=== PATIENT | male | born 1960 | race Caucasian/White ===

== ENCOUNTER 2020-04-16 00:06 | Outpatient (CLI) | payer BC, SELFPAY ==
[2020-04-16 19:24] LABS: SARS-CoV-2 RNA PCR Negative
== END 2020-04-16 00:07 | disposition home or self-care (01) ==
LOC: ANHCOVIDDT 00:07
PROVIDERS: PCP Family Medicine; Visit Provider Internal Medicine Gastroenterology
DX: Z01.812 Encounter for preprocedural laboratory examination (principal); Z20.828 Contact with and (suspected) exposure to other viral communicable diseases
CPT/HCPCS: 87635; C9803; U0003

== ENCOUNTER 2020-04-19 00:48 | Day surgery (SDC) | payer BC, SELFPAY ==
[2020-04-14 10:25] VITALS: BMI 22.8
[2020-04-19 07:55] VITALS: BP 122/79; PULSE 74; RESP 16; TEMP 36.8; O2SAT 97; BMI 22.4
--- NOTE | 2020-04-19 08:07 | WPDGICN ---
Assessment and Plan Assessment and plan (1) History of colon polyps: Code(s): Z86.010 - Personal history of colonic polyps Status: Acute Assessment and Plan: Patient has a history of colon polyps plan is for surveillance colonoscopy now and at intervals in the future. GI Consult Note Consult date/time: 04/19/20 08:07 HPI: Néstor Frost is a 59 year old male Seen in his evaluation for screening colonoscopy. Patient's past medical history is significant for colon polyps. He presents today for surveillance examination. His current weight appetite bowel movements are normal. His last colonoscopy was 2012. Family history is noncontributory. Patient reports no blood in his stools. He states his bowel habits are normal. Review of Systems Review of Systems: All systems reviewed & are unremarkable except as noted in HPI and below PMFSH Social History Social History Smoking packs per day: 0.5 Smoking cigarettes per day: 10.0 Years smoked: 30 Smoking pack-years: 15.00 Alcohol intake: current Drinks per week: 2 Substance use: never Substance use type: does not use Living arrangements: with family Spiritual care concerns: No Meds Home Medications and Allergies Home Medications Medication Instructions Recorded Confirmed Type vl-xh-OO-vit I-ooevd-oky-coQ10 1 cap PO DAILY 04/14/20 04/14/20 History [Daily Multivitamin] omega-3 fatty acids [Fish Oil] 1,000 mg PO DAILY 04/14/20 04/14/20 History Allergies Allergy/AdvReac Type Severity Reaction Status Date / Time codeine Allergy Mild Hives Verified 04/19/20 07:54 Vital Signs Vital Signs - 24 hr 04/19/20 07:55 Temperature 98.3 F Pulse Rate 74 Respiratory Rate 16 Blood Pressure 122/79 Pulse Oximetry 97 Exam Narrative: Exam Narrative: Physical exam reveals patient to be alert. Vital signs stable. HEENT exam unremarkable. Lungs are clear to auscultation and percussion. Heart is without murmur or extra sounds. Abdominal exam bowel sounds are present soft nontender with no organomegaly. Digital external rectal exam is normal.
[2020-04-19] MEDS: LACTATED RINGERS 1,000 ML 150 ML IV CONT (08:10)
--- NOTE | 2020-04-19 08:40 | WPDANESEPPF ---
Anes - Initial Pre Proc Eval Procedure: Operation Date: 04/19/20 09:00 Proposed Procedures p Screening Colonoscopy - Oswald Marcial MD Date/Time: 04/19/20 08:40 Surgeon: Oswald Marcial MD Pre Op Diagnosis: Neoplasm Screening/ Hx Colon Polyps Patient Data Age: 59 Gender: M Height: 5 ft 8 in Weight: 67.1 kg Last Vital Signs Temp 98.3 F 04/19/20 07:55 Pulse 74 04/19/20 07:55 Resp 16 04/19/20 07:55 BP 122/79 04/19/20 07:55 Pulse Ox 97 04/19/20 07:55 Allergies Allergy/AdvReac Type Severity Reaction Status Date / Time codeine Allergy Mild Hives Verified 04/19/20 07:54 Home Medications Medication Instructions Recorded Confirmed Type kn-kq-ZG-vit S-hoysf-blu-coQ10 1 cap PO DAILY 04/14/20 04/14/20 History [Daily Multivitamin] omega-3 fatty acids [Fish Oil] 1,000 mg PO DAILY 04/14/20 04/14/20 History Patient hx anesthesia problems: none Family hx anesthesia problems: none PMFSH Social History Social History Smoking packs per day: 0.5 Smoking cigarettes per day: 10.0 Years smoked: 30 Smoking pack-years: 15.00 Alcohol intake: current Drinks per week: 2 Substance use: never Substance use type: does not use Living arrangements: with family Spiritual care concerns: No Anes - Eval Final PreProcedure Day of Procedure 04/19/20 08:40 Patient weight: normal Heart: regular rate and rhythm Lungs: clear to auscultation Airway: Mallampati scale class II Neurological: alert and oriented Last oral intake: >/= 8 hours ASA classification: II Emergent: no Anesthetic plan: proceed Anesthesia type and monitoring: general GIVS and standard monitoring Informed Consent: The patient's anesthetic plan and its attendant risks and benefits were discussed with the patient/family/POA. Questions were solicited and answers provided to the satisfaction of the patient/family/POA.
[2020-04-19 09:15] VITALS: BP 105/67; PULSE 71; RESP 22; O2SAT 97
[2020-04-19 09:25] VITALS: BP 122/79; PULSE 70; RESP 22; O2SAT 99
[2020-04-19 09:35] VITALS: BP 118/74; RESP 18; O2SAT 99
== END 2020-04-19 09:47 | disposition home or self-care (01) ==
PROVIDERS: PCP Family Medicine; Visit Provider Internal Medicine Gastroenterology
PROC: 0DJD8ZZ Inspection of Lower Intestinal Tract, Via Natural or Artificial Opening Endoscopic (ICD-10-PCS; CPT 45378; principal; 2020-04-19 09:00)
DX: Z12.11 Encounter for screening for malignant neoplasm of colon (principal); D12.2 Benign neoplasm of ascending colon; K64.0 First degree hemorrhoids; F17.210 Nicotine dependence, cigarettes, uncomplicated
CPT/HCPCS: 45385; 88305; J2704; J7120